=== PATIENT | female | born 1985 | race Two or more races ===

== ENCOUNTER → 2024-02-06 | Outpatient (CLI) | payer BC, OTHER, SELFPAY ==
[2024-02-06 10:43] LABS: Glucose Estimated Average 349 mg/dL (80-131); Hemoglobin A1C 13.8 % Hgb (4.8-6.0)
[2024-02-06 10:58] LABS: Albumin, Serum 4.6 gm/dL (3.5-5.0); Anion Gap 8 (7-16); BUN/Creatinine Ratio 29 Ratio (12-20); Blood Urea Nitrogen 26 mg/dL (9-23); Calcium 10.3 mg/dL (8.3-10.6); Calcium (Corrected) 10.3 mg/dL (8.5-10.1); Carbon Dioxide 27.2 mMol/L (20.0-31.0); Chloride 100 mMol/L (98-107); Creatinine (Component) 0.9 mg/dL (0.6-1.3); Glucose 372 mg/dL (74-106); Osmolality,Calculated 289 (275-295); Phosphorous 3.2 mg/dL (2.4-5.1); Potassium 4.2 mMol/L (3.4-5.1); Sodium 135 mMol/L (136-145); eGFR > 60 See Note
== END | disposition home or self-care (01) ==
LOC: COPL 09:14
PROVIDERS: PCP Internal Medicine; Referring Provider Internal Medicine; Visit Provider Internal Medicine
DX: E11.65 Type 2 diabetes mellitus with hyperglycemia (principal)
CPT/HCPCS: 36415; 80069; 83036; 84681

== ENCOUNTER → 2024-04-15 | Outpatient (CLI) | payer BC, OTHER, SELFPAY ==
[2024-04-15 10:15] LABS: Collection Type, Urine Clean Catch
[2024-04-15 10:46] LABS: Glucose Estimated Average 189 mg/dL (80-131); Hemoglobin A1C 8.2 % Hgb (4.8-6.0)
[2024-04-15 10:51] LABS: Creatinine MALB Rnd Ur 105 mg/dL (30-125); Microalbumin, Random Urine < 3 mg/L (0-300)
[2024-04-15 10:52] LABS: Alanine Aminotransferase 24 U/L (10-49); Albumin, Serum 3.8 gm/dL (3.5-5.0); Albumin/Globulin Ratio 1.7 (1.2-2.2); Alkaline Phosphatase 52 U/L (46-116); Anion Gap 6 (7-16); Aspartate Amino Transferase 16 U/L (0-34); BUN/Creatinine Ratio 27 Ratio (12-20); Bilirubin,Total 0.6 mg/dL (0.3-1.2); Blood Urea Nitrogen 19 mg/dL (9-23); Calcium 9.1 mg/dL (8.3-10.6); Calcium (Corrected) 9.3 mg/dL (8.5-10.1); Carbon Dioxide 28.9 mMol/L (20.0-31.0); Cardiac Risk Estimate 2.1 RATIO (3.7-5.6); Chloride 106 mMol/L (98-107); Cholesterol 159 mg/dL (132-200); Creatinine (Component) 0.7 mg/dL (0.6-1.3); Free T4 (Free Thyroxine) 1.77 ng/dL (0.89-1.76); Globulin 2.2 gm/dL (2.3-3.5); Glucose 142 mg/dL (74-106); HDL Cholesterol 75 mg/dL (40-60); LDL Cholesterol,Calculated 73 mg/dL (0-130); Osmolality,Calculated 285 (275-295); Potassium 3.5 mMol/L (3.4-5.1); Sodium 141 mMol/L (136-145); Triglycerides 56 mg/dL (30-150); eGFR > 60 See Note
[2024-04-15 10:55] LABS: Bacteria,Urine 3+; Bilirubin,Urine Negative (Negative); Blood,Urine Trace (Negative); Clarity,Urine Turbid (Clear/Hazy); Color,Urine Yellow (Lt Yel-Yel); Culture Indicated,Urine Contaminated; Glucose, Urine Negative (Negative); Ketones,Urine Negative (Negative); Leukocyte Esterase,Urine Positive (Negative); Nitrite,Urine Positive (Negative); PH,Urine 6.5 (5.0-7.0); Protein,Urine Trace (Neg - Trace); RBC,Urine 8 /hpf (0-3); Specific Gravity,Urine 1.025 (1.001-1.035); Squamous Epithelial Cell,Urine 29 /hpf (0-5); Urobilinogen,Urine Negative mg/dL (0.0-1.0); WBC,Urine 21 /hpf (0-5)
[2024-04-22 07:01] LABS: T3,Total* 73 ng/dL (76-181); Thyroid Peroxidase Antibodies* 12 IU/mL (<9)
== END | disposition home or self-care (01) ==
PROVIDERS: PCP Family Medicine; Referring Provider Nurse Practitioner Family; Visit Provider Nurse Practitioner Family
DX: E11.65 Type 2 diabetes mellitus with hyperglycemia (principal); E03.9 Hypothyroidism, unspecified
CPT/HCPCS: 36415; 80053; 80061; 81001; 82043; 82570; 83036; 84439; 84443; 84480; 86376

== ENCOUNTER → 2024-05-22 | Outpatient (CLI) | payer BC, OTHER, SELFPAY ==
[2024-05-22 09:08] LABS: Collection Type, Urine Clean Catch
[2024-05-22 10:28] LABS: Bacteria,Urine Rare; Bilirubin,Urine Negative (Negative); Blood,Urine Negative (Negative); Clarity,Urine Clear (Clear/Hazy); Color,Urine Lt-Yellow (Lt Yel-Yel); Glucose, Urine 4+ (Negative); Ketones,Urine Negative (Negative); Leukocyte Esterase,Urine Negative (Negative); Nitrite,Urine Positive (Negative); Protein,Urine Negative (Neg - Trace); RBC,Urine 1 /hpf (0-3); Specific Gravity,Urine 1.026 (1.001-1.035); Squamous Epithelial Cell,Urine 1 /hpf (0-5); Urobilinogen,Urine Negative mg/dL (0.0-1.0); WBC,Urine 10 /hpf (0-5)
[2024-05-22 10:35] LABS: Free T4 (Free Thyroxine) 1.38 ng/dL (0.89-1.76); Thyroid Stimulating Hormone 1.09 uIU/mL (0.55-4.78)
[2024-05-22 10:56] LABS: Culture Indicated,Urine Yes
== END | disposition home or self-care (01) ==
LOC: COPL 08:11
PROVIDERS: PCP Family Medicine; Referring Provider Nurse Practitioner Family; Visit Provider Nurse Practitioner Family
DX: E03.9 Hypothyroidism, unspecified (principal); N30.01 Acute cystitis with hematuria
CPT/HCPCS: 36415; 81001; 84439; 84443; 87077; 87086; 87186

== ENCOUNTER 2024-07-27 11:56 | Inpatient (IN) | payer BC, OTHER, SELFPAY ==
[2024-07-27] VITALS (11 sets, daily range): BP systolic 93–101; BP diastolic 51–71; PULSE 86–128; RESP 16–98; TEMP 36.8–39; O2SAT 98–99; BMI 22.6; BMI 21.9
--- NOTE | 2024-07-27 12:20 | XR_ITS ---
Examination: PA lateral chest 2 views Technique: Upright PA lateral chest 2 views Date and time: July 27, 2024 at 1228 hrs. Indications: Coughing beginning 3 days ago. Findings: Normal heart size. Lungs are clear. The osseous structures are intact Impression: No active disease
--- NOTE | 2024-07-27 12:21 | PD.EDRME ---
Rapid Medical Screening Exam RME Arrival date/time: 07/27/24 11:56 39-year-old female insulin-dependent diabetic presents Emergency Department today for complaints of feeling like she has had flulike symptoms generalized bodyaches ongoing for the last week patient was seen by PCP and referred to the ER for further evaluation Chief Complaint: Flu Like Symptoms Time Seen by Provider: 07/27/24 11:57 Vital signs: Vital Signs Temperature 100.5 F H 07/27/24 12:16 Pulse Rate 86 07/27/24 12:16 Respiratory Rate 16 07/27/24 12:16 Blood Pressure 93/56 L 07/27/24 12:16 Pulse Oximetry (%) 98 07/27/24 12:16 Oxygen Delivery Method Room Air 07/27/24 12:16
[2024-07-27] MEDS: ACETAMINOPHEN 325 MG TABLET 650 MG PO ×2 (12:27→19:16)
[2024-07-27 12:53] LABS: Lactate (Lactic Acid) 1.8 mMol/L (0.4-2.0)
[2024-07-27 12:54] LABS: Base Excess, Venous 2 (-3-3); O2 Saturation, Venous 42 % (96-97); PCO2, Venous 38 mmHg (36-56); PO2, Venous 22 mmHg (15-58); pH, Venous 7.44 (7.33-7.66)
[2024-07-27 12:56] LABS: Basophils # (Auto) 0.1 Thou/mm3 (0.0-0.2); Basophils % (Auto) 1 % (0-2.5); Eosinophils # (Auto) 0.1 Thou/mm3 (0.0-0.5); Eosinophils % (Auto) 1 % (0-10); Immature Granulocytes % (Auto) 1 % (0-0); Immature Granulocytes Auto 0.08 Thou/mm3 (0.00-0.00); Lymphocytes # (Auto) 0.4 Thou/mm3 (1.0-4.8); Lymphocytes % (Auto) 5 % (10-50); Mean Corpuscular HGB Conc 36.1 g/dl (31.0-37.0); Mean Corpuscular Volume 89 fL (80-100); Monocytes # (Auto) 0.3 Thou/mm3 (0.0-0.8); Monocytes % (Auto) 4 % (0-12); Neutrophils # (Auto) 7.4 Thou/mm3 (1.8-7.7); Neutrophils % (Auto) 88 % (37-80); Nucleated Red Blood Cell % 0 /100 WBC (0); Platelet Count 172 Thou/mm3 (140-440); RDW Standard Deviation 41.1 fL (36.4-46.3); Red Blood Count 4.06 Miln/mm3 (4.00-5.20); White Blood Count 8.4 Thou/mm3 (3.6-11.0)
[2024-07-27 13:22] LABS: Alanine Aminotransferase 14 U/L (10-49); Albumin, Serum 4.1 gm/dL (3.5-5.0); Albumin/Globulin Ratio 1.5 (1.2-2.2); Alkaline Phosphatase 112 U/L (46-116); Anion Gap 11 (7-16); Aspartate Amino Transferase 15 U/L (0-34); BUN/Creatinine Ratio 22 Ratio (12-20); Bilirubin,Total 0.6 mg/dL (0.3-1.2); Blood Urea Nitrogen 31 mg/dL (9-23); Calcium 9.3 mg/dL (8.3-10.6); Calcium (Corrected) 9.3 mg/dL (8.5-10.1); Carbon Dioxide 26.7 mMol/L (20.0-31.0); Chloride 95 mMol/L (98-107); Creatinine (Component) 1.4 mg/dL (0.6-1.3); Estimated Creatinine Clearance 39.9 mL/min (>60); Globulin 2.8 gm/dL (2.3-3.5); Glucose 256 mg/dL (74-106); Lipase 24 U/L (12-53); Osmolality,Calculated 281 (275-295); Potassium 4.1 mMol/L (3.4-5.1); Sodium 133 mMol/L (136-145); Total Protein 6.9 gm/dL (5.7-8.2); eGFR 48 See Note
[2024-07-27 13:24] LABS: Glucose Estimated Average 186 mg/dL (80-131); Hemoglobin A1C 8.1 % Hgb (4.8-6.0)
[2024-07-27 13:32] LABS: Collection Type, Urine Clean Catch
[2024-07-27 13:42] LABS: HCG Qualitative,Urine Negative
[2024-07-27 13:43] LABS: Procalcitonin 27.27 ng/ml (0.0-0.49)
[2024-07-27 13:52] LABS: Bacteria,Urine 4+; Bilirubin,Urine Negative (Negative); Blood,Urine 2+ (Negative); Budding Yeast,Urine Present; Clarity,Urine Turbid (Clear/Hazy); Color,Urine Yellow (Lt Yel-Yel); Glucose, Urine 2+ (Negative); Ketones,Urine 1+ (Negative); Leukocyte Esterase,Urine Positive (Negative); Nitrite,Urine Positive (Negative); Protein,Urine 3+ (Neg - Trace); RBC,Urine 14 /hpf (0-3); Specific Gravity,Urine 1.026 (1.001-1.035); Squamous Epithelial Cell,Urine 4 /hpf (0-5); Transitional Epi Cells,Urine 2 /hpf (0-5); Urobilinogen,Urine Negative mg/dL (0.0-1.0); WBC,Urine 429 /hpf (0-5)
[2024-07-27 13:54] LABS: Culture Indicated,Urine Yes
--- NOTE | 2024-07-27 16:50 | EDNOTE_ITS ---
ED General RME/HPI General Chief complaint: Flu Like Symptoms Stated complaint: SENT BY PCP FLU SYMPTOMS Time Seen by Provider: 07/27/24 11:57 Arrival date/time: 07/27/24 11:56 CC: Body aches flulike symptoms HPI ongoing for the past 4 days. Patient was recently diagnosed with diabetes now started on metformin pioglitazone as well as insulin. 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 Patient denies any nausea vomiting does complain of intermittent headache which is currently absent,, mild fever, patient denies chest pain painful urination bloody urination diarrhea or constipation. at bedside said the patient has lost considerable weight since the diabetes diagnosis. RME / HPI RME / HPI narrative: 07/27/24 11:56 39-year-old female insulin-dependent diabetic presents Emergency Department tod ay for complaints of feeling like she has had flulike symptoms generalized bodyaches ongoing for the last week patient was seen by PCP and referred to the ER for further evaluation Related Data Home Medications ?Medication ?Instructions ?Recorded ?Confirmed Vitamin * 1 tab PO QDAY SUPPLEMENT #0 tabs 01/12/14 Previous Rx's ?Medication ?Instructions ?Recorded ibuprofen 600 mg tablet 600 mg PO Q6HR PRN PAIN 7 da ys #0 01/14/14 tabs Allergies Allergy/AdvReac Type Severity Reaction Status Date / Time Sulfa (Sulfonamide Allergy Mild RASH Verified 07/27/24 11:56 Antibiotics) Review of Systems Review of Systems Narrative Review of Systems: GEN: No fever, no chills, no weight loss EYES: No discharge, no visual changes, no pain HEENT: No ear pain, no congestion, no sore throat PULM: No shortness of breath, no cough, no congestion CV: No chest pain, no dyspnea on exertion, no palpitations GI: No nausea, no vomiting, no diarrhea, no pain, no constipation : No frequency, no urgency, no dysuria MUSC/SKEL: No joint pain, no back pain SKIN: No rash PSYCH: No hallucinations, no depression HEME/LYMPH: No easy bleeding or bruising tendencies NEURO: + weakness, no headache Past Medical History Social History SMOKING STATUS: Never smoker ED Exam Narrative Physical exam: [General: In mild discomfort but not in any acute distress Head normocephalic HEENT: Within acceptable limits Neck is supple nontender Chest equal chest rise nontender to palpation Respiratory: Clear to auscultation no wheezes crackles or rubs CV: Rate rhythm is regular no murmurs rubs or clicks Abdomen is soft nontender no masses positive bowel sounds all 4 quadrants Back: No CVA tenderness no spinous process tenderness from cervical spine thoracic and lumbar spine Skin: Intact no petechiae rash induration ulceration or crepitus Extremities: Moving all extremity against resistance cap refill less than 2 seconds neurosensory intact Neuro: Awake alert oriented x3 Glascow coma 15 no focal deficits] Course Quality Measures none Orders Category Date Time Status Bedside COVID-19 Antigen Test NOW Care 07/27/24 12:20 Active Bedside Influenza A&B Antigen Test NOW Care 07/27/24 12:20 Completed Saline [Insert IV] NOW Care 07/27/24 16:[address] abdomen pelvis wo con Stat Exams 07/27/24 20:27 Ordered XR chest 2V Stat Exams 07/27/24 12:20 Completed A1C [Glycohemoglobin w (eAG)] Stat Lab 07/27/24 12:43 Completed Blood Culture (Lab) Stat Lab 07/27/24 12:43 Received CBC Stat Lab 07/27/24 12:43 Completed CMP [Comprehensive Metabolic Panel] Stat Lab 07/27/24 19:03 Completed Comprehensive Metabolic Panel Stat Lab 07/27/24 12:43 Completed HCG Qualitative,Urine Stat Lab 07/27/24 13:07 Completed Lactic Acid [Lactate (Lactic Acid)] Stat Lab 07/27/24 12:43 Completed Lipase Stat Lab 07/27/24 12:43 Completed Procalcitonin Stat Lab 07/27/24 12:43 Completed UA, C/S IF [Urinalysis, C/S if Indicated] Stat Lab 07/27/24 13:07 Completed Urine Culture Stat Lab 07/27/24 13:07 Received VBG [Venous Blood Gas] Stat Lab 07/27/24 12:43 Completed Acetaminophen Tab [Tylenol Tab] Med 07/27/24 12:20 Discontinued 650 mg PO X1 ONE Acetaminophen Tab [Tylenol Tab] Med 07/27/24 18:52 Discontinued 650 mg PO X1 ONE Sodium Chloride 0.9% 1000 ml [Ns] 1,000 ml Med 07/27/24 16:40 Discontinued IV 999 mls/hr Sodium Chloride 0.9% 1000 ml [Ns] 1,000 ml Med 07/27/24 17:55 Discontinued IV 999 mls/hr Sodium Chloride 0.9% 1000 ml [Ns] 1,000 ml Med 07/27/24 20:28 Active IV 999 mls/hr Sodium Chloride 0.9% 1000 ml [Ns] 1,000 ml Med 07/27/24 20:37 Ordered IV 999 mls/hr cefTRIAXone/D5w 1gm IV premix [Rocephin/D5w 1gm IV Med 07/27/24 16:40 Discontinued premix] 1 gm in 50 ml IV X1 Vital Signs Vital signs: Vital Signs Temperature 100.5 F H 07/27/24 12:16 Pulse Rate 86 07/27/24 12:16 Respiratory Rate 16 07/27/24 12:16 Blood Pressure 93/56 L 07/27/24 12:16 Pulse Oximetry (%) 98 07/27/24 12:16 Oxygen Delivery Method Room Air 07/27/24 12:16 Discharge Plan Plan Patient Disposition: Other Care w/in Hosp (SDC/EDDI) Patient condition on transfer: Stable Prescriptions/Referrals Prescriptions/Med Rec: No Action Vitamin * 1 EACH tablet 1 tab PO QDAY Qty: 0 ibuprofen 600 MG tablet 600 mg PO Q6HR PRN (Reason: PAIN) 7 Days Qty: 0 0RF Referrals: Alina Harding MD [Primary Care Provider] - In 1 week Problem List Clinical Impression: CHASIDY (acute kidney injury), Dehydration, UTI (urinary tract infection), Hyperglycemia due to diabetes mellitus, Tachycardia Patient/Caregiver Discharge Instructions Print Language: Sinhala Stand Alone Forms: Ina Award Info., Patient Portal Info Letter PA/PARTS ADMINISTRATOR Supervising Physician PA/PARTS ADMINISTRATOR Supervising Physician: Joey Hudson ENP [facility] Clinical Information Provided by patient Medical Records Reviewed [facility] Meds/Rx Considered, not Ordered None Labs/Rad/Tests considered, not Ordered None Chronic Illness/Social Conditions Add or document further as needed: Diabetes new onset EKG EKG not done Lab Interpretation Labs: interpreted by al Lab(s) interpretation(s): CBC showed no acute leukocytosis anemia thrombocytopenia VBG shows a pH of 7.44 pCO2 of 38 PO2 of 22 Base excess of 2 CMP shows sodium 133 a potassium of 4.1 chloride of 95 CO2 of 26.7 gap of 11 BUN of 31 creatinine of 1.4 Glucose of 256 Hemoglobin A1c of 8.1 Lactic of 1.8 Procalcitonin of 27.27 Urine is turbid 3+ protein 2+ glucose 1+ ketones 2+ blood nitrite positive leukocyte Estrace positive WBCs of 420 94+ bacteria. hCG is negative. Imaging Imaging interpretation: interpreted by me Provider imaging interpretation(s): Chest x-ray as interpreted by me shows no acute finding requires emergent or immediate intervention. Radiology reports / interpretation(s): Patient has a UTI, patient also has not been drinking shown by the CKD, this time I am concerned about both UTI and CKD we will give the patient 2 L of fluid and antibiotics and recheck. Recheck of CMP shows been no significant proved in fact BUN has probably slightly worsening, patient's case discussed discussed with Dr. Jaquez resident as I feel this patient needs to have a more thorough workup. Will rule out pyelonephritis, and see if we can recover the kidneys. Medication Administration(s) Medication Administration History Sodium Chloride (Ns) 1,000 mls @ 999 mls/hr IV .Q1H1M ONE Stop: 07/27/24 21:28 Discontinued Medications Acetaminophen (Acetaminophen 325 Mg Tablet) 650 mg PO X1 ONE Stop: 07/27/24 12:21 Last Admin: 07/27/24 12:27 Dose: 650 mg Documented By: DO Acetaminophen (Acetaminophen 325 Mg Tablet) 650 mg PO X1 ONE Stop: 07/27/24 18:53 Last Admin: 07/27/24 19:16 Dose: 650 mg Documented By: CINDA Sodium Chloride (Ns) 1,000 mls @ 999 mls/hr IV .Q1H1M ONE Stop: 07/27/24 17:40 Last Infusion: 07/27/24 17:59 Dose: Infused Documented By: Admin: 07/27/24 16:57 Dose: 999 mls/hr Documented By: VERNON Ceftriaxone Sodium/Dextrose (Rocephin/D5w 1gm Iv Premix) 1 gm in 50 mls @ 100 mls/hr IV X1 ONE Stop: 07/27/24 17:09 Last Infusion: 07/27/24 17:59 Dose: Infused Documented By: Admin: 07/27/24 16:57 Dose: 100 mls/hr Documented By: VERNON Sodium Chloride (Ns) 1,000 mls @ 999 mls/hr IV .Q1H1M ONE Stop: 07/27/24 18:55 Last Infusion: 07/27/24 19:16 Dose: Infused Documented By: Admin: 07/27/24 18:00 Dose: 999 mls/hr Documented By: VERNON Diagnosis Differential diagnosis: UTI pyelonephritis dehydration electrolyte imbalance
[2024-07-27] MEDS: SODIUM CHLORIDE 0.9% 1000 ML 1,000 ML 999 ML IV ×4 (16:57→23:45)
[2024-07-27] MEDS: cefTRIAXone/D5w 1gm IV premix 1 GM/50 ML BAG IV ×2 (16:57→22:09)
--- NOTE | 2024-07-27 17:05 | PC.NURSE ---
PT IN TODAY FOR MUSCLE ACHING, WEAKNESS SINCE Sunday07/24/24. PT IS A/O X4, ANSWERING ALL QUESTIONS. PT IS A NEWLY DIAGNOSED DM WITH IN THE LAST YEAR. PT STATES THAT BLOOD SUGARS WERE IN THE 200'S AND NORMALLY THEY RUN IN THE 90'S. CALL LIGHT WITH IN REACH AND SIG OTHER AT BEDSIDE.
--- NOTE | 2024-07-27 19:35 | PC.NURSE ---
pt resting quietly. co a bad MEDEL and low back pain. tylenol given.recheck 45 min
[2024-07-27 19:47] LABS: Alanine Aminotransferase 15 U/L (10-49); Albumin, Serum 3.4 gm/dL (3.5-5.0); Albumin/Globulin Ratio 1.4 (1.2-2.2); Alkaline Phosphatase 99 U/L (46-116); Anion Gap 11 (7-16); Aspartate Amino Transferase 22 U/L (0-34); BUN/Creatinine Ratio 24 Ratio (12-20); Bilirubin,Total 0.4 mg/dL (0.3-1.2); Blood Urea Nitrogen 34 mg/dL (9-23); Calcium 8.4 mg/dL (8.3-10.6); Calcium (Corrected) 8.9 mg/dL (8.5-10.1); Chloride 99 mMol/L (98-107); Creatinine (Component) 1.4 mg/dL (0.6-1.3); Estimated Creatinine Clearance 39.9 mL/min (>60); Globulin 2.5 gm/dL (2.3-3.5); Glucose 284 mg/dL (74-106); Osmolality,Calculated 283 (275-295); Sodium 133 mMol/L (136-145); Total Protein 5.9 gm/dL (5.7-8.2); eGFR 48 See Note
--- NOTE | 2024-07-27 20:27 | XR_ITS ---
Examination: CT abdomen and pelvis without contrast. Coronal 3-D reconstructions. Sagittal 2-D reconstructions. Date and time of exam:July 27, 2024 1228 hours INDICATIONS: Flank and lower abdominal pain beginning 4 days ago CTDI: vol (mGy): 7.13 DLP: (mGycm): 370 Technique: Axial images of the abdomen have been obtained, 3 mm slice thickness Intravenous contrast material has not been administered. Low dose protocols were performed. One or more of the following dose reduction techniques were used; automated exposure control, adjustment of the mA and/or KV according to patient size, use of iterative reconstruction technique. Findings: Suspicious for subtle edema at the lung bases No liver or splenic lesion No pancreatic mass No gallstones 2 mm lower pole left renal calculus Moderate left hydronephrosis, 7 mm left ureteropelvic junction calculus 18 mm fat-containing umbilical hernia No bowel obstruction Normal appendix No diverticulitis No pelvic mass Contracted urinary bladder IMPRESSION: Suspicious for subtle edema at the lung bases Moderate left hydronephrosis, 7 mm left ureteropelvic junction calculus
--- NOTE | 2024-07-27 21:14 | ESHP_ITS ---
Documentation for date of: 07/27/24 HPI History of Present Illness History of present illness: The patient is a 39-year-old female with a past medical history of diabetes mellitus, dysfunctional uterine bleeding status post hysterectomy, who presents to the ER complaining of generalized bodyaches, cough and burning micturition that started since . Patient states she visited her primary care provider, rapid COVID and influenza was negative, and she was not given any antibiotics. Patient stated that she has been feeling nauseous, and has myalgias, more pronounced in her lower back, neck and thighs. Also complaining of epigastric abdominal discomfort. Denies shortness of breath but reported taking shallow breaths as coughing and deep breathing causes her pain to aggravate. Patient denied productive cough, shortness of breath, chest pain, dizziness. Of note, patient was recently diagnosed with diabetes mellitus last month and started on metformin, pioglitazone and insulin 10 units daily, per patient she started having visual disturbances, where she was unable to read small text even at arms length, was found to have blood glucose in the 600s. At the time of presentation to ER patient was found to be hypotensive, febrile, tachycardic, received IV fluid boluses, initial labs pertinent for CHASIDY, and hyperglycemia. Urinalysis positive for UTI. Pending CT abdomen pelvis. Past medical history: Diabetes mellitus, diagnosed last month, on metformin, prednisone and insulin glargine 10 units daily. Past surgical history: S/p hysterectomy for dysfunctional uterine bleeding. 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 Has 3 kids. Review of Systems Review of Systems Systems Reviewed: All systems reviewed, normal except as documented Past Medical History Past Medical History CARDIAC: Negative Congestive Heart Failure RESPIRATORY: Negative Chronic Obstructive Pulmonary Disease (COPD) GENITOURINARY: Negative Renal Disease ENDOCRINE: Positive Diabetes Mellitus Type 2; Negative Diabetes Mellitus Type 1 Surgical History SURGICAL: Positive Hysterectomy (2022) Social History SMOKING STATUS: Never smoker Exam Vital Signs Temp Pulse Resp BP Pulse Ox O2 Del Method 102.2 F H 128 H 18 101/71 99 Room Air 07/27/24 20:44 07/27/24 19:18 07/27/24 19:18 07/27/24 19:18 07/27/24 19:18 07/27/24 19:18 Narrative Exam General: In mild discomfort due to pain, but not in any acute distress Head normocephalic HEENT: Within acceptable limits Neck is supple nontender Chest equal chest rise nontender to palpation Respiratory: Clear to auscultation no wheezes crackles or rubs CV: Rate rhythm is regular, tachycardic, no murmurs rubs or clicks Abdomen is mildly tender in right and left upper quadrants, negative rebound, negative Arauz sign. Back: No CVA tenderness no spinous process tenderness from cervical spine thoracic and lumbar spine Skin: Intact no petechiae rash induration ulceration or crepitus tattoos left upper arm. Extremities: Moving all extremity against resistance cap refill less than 2 seconds neurosensory intact Neuro: Awake alert oriented x3 Glascow coma 15 no focal deficits Results: Labs 07/27/24 12:43 07/27/24 19:03 Labs: Short CBC 07/27/24 Range/Units 12:43 WBC 8.4 (3.6-11.0) Thou/mm3 Hgb 13.0 (12.0-16.0) g/dL Hct 36.0 (36.0-46.0) % Plt Count 172 (140-440) Thou/mm3 BMP 07/27/24 07/27/24 12:43 19:03 Sodium 133 L 133 L Potassium 4.1 4.0 Chloride 95 L 99 Carbon Dioxide 26.7 23.0 BUN 31 H 34 H Creatinine 1.4 H 1.4 H Glucose 256 H 284 H Calcium 9.3 8.4 Liver Function 07/27/24 07/27/24 Range/Units 12:43 19:03 Total Bilirubin 0.6 0.4 (0.3-1.2) mg/dL AST 15 22 (0-34) U/L ALT 14 15 (10-49) U/L Alkaline Phosphatase 112 99 (46-116) U/L Albumin 4.1 3.4 L D (3.5-5.0) gm/dL Urine 07/27/24 Range/Units 13:07 Urine Color Yellow (Lt Yel-Yel) Urine Clarity Turbid A (Clear/Hazy) Urine pH 6.0 (5.0-7.0) Ur Specific [place] 1.026 (1.001-1.035) Urine Protein 3+ A (Neg - Trace) Urine Glucose (UA) 2+ A (Negative) ABG Interpretation ABG results: 07/27/24 12:43 VBG pH 7.44 VBG pCO2 38 VBG pO2 22 VBG Base Excess 2 Quality Measures Quality Measures none Medications Home Medications and Allergies Home Medications ?Medication ?Instructions ?Recorded ?Confirmed ?Type Vitamin * 1 tab PO QDAY SUPPLEMENT #0 tabs 01/12/14 History Allergies Allergy/AdvReac Type Severity Reaction Status Date / Time Sulfa (Sulfonamide Allergy Mild RASH Verified 07/27/24 11:56 Antibiotics) Visit Medications Acetaminophen (Acetaminophen 325 Mg Tablet) 650 mg PO Q6H PRN PRN Reason: PAIN OR FEVER > 101 Stop: 08/26/24 21:07 Dextrose (Dextrose 50%-Water Inj 50 Ml Syringe) 25 ml IV Q15MIN PRN PRN Reason: BG 50-70 responsive npo pt Stop: 08/26/24 21:07 Dextrose (Dextrose 50%-Water Inj 50 Ml Syringe) 50 ml IV Q15MIN PRN PRN Reason: BG <50 OR BG <70 & pt unresponsive Stop: 08/26/24 21:07 Glucagon (Glucagon Inj 1 Mg Vial) 1 mg IM Q15MIN PRN PRN Reason: BG <70, and no IV access Sodium Chloride (Ns) 1,000 mls @ 999 mls/hr IV .Q1H1M ONE Stop: 07/27/24 21:28 Sodium Chloride (Ns) 1,000 mls @ 999 mls/hr IV .Q1H1M ONE Stop: 07/27/24 21:37 Ceftriaxone Sodium/Dextrose (Rocephin/D5w 1gm Iv Premix) 1 gm in 50 mls @ 100 mls/hr IV X1 ONE Stop: 07/27/24 21:42 Ceftriaxone Sodium 2 gm/ (Sodium Chloride) 50 mls @ 100 mls/hr IV QDAY [place] Stop: 08/04/24 08:59 Insulin Glargine (Insulin Glargine (Lantus) 5 Unit/0.05 Ml (Per 5 Units)) 10 unit SC HS [place] Stop: 08/27/24 20:59 Insulin Human Lispro (Insulin Lispro (Admelog) 1 Unit/0.01 Ml Unit) 0 unit SC AC [place]; Protocol Stop: 08/27/24 07:29 Ondansetron HCl (Ondansetron Inj 2 Mg/Ml Inj 2 Ml) 4 mg IV Q6H PRN; Protocol PRN Reason: NAUSEA OR VOMITING Stop: 08/26/24 21:07 Sennosides (Senna Tablet) 2 tab PO BID PRN; Protocol PRN Reason: CONSTIPATION Stop: 08/26/24 21:07 Discontinued Medications Acetaminophen (Acetaminophen 325 Mg Tablet) 650 mg PO X1 ONE Stop: 07/27/24 12:21 Last Admin: 07/27/24 12:27 Dose: 650 mg Acetaminophen (Acetaminophen 325 Mg Tablet) 650 mg PO X1 ONE Stop: 07/27/24 18:53 Last Admin: 07/27/24 19:16 Dose: 650 mg Sodium Chloride (Ns) 1,000 mls @ 999 mls/hr IV .Q1H1M ONE Stop: 07/27/24 17:40 Last Infusion: 07/27/24 17:59 Dose: Infused Ceftriaxone Sodium/Dextrose (Rocephin/D5w 1gm Iv Premix) 1 gm in 50 mls @ 100 mls/hr IV X1 ONE Stop: 07/27/24 17:09 Last Infusion: 07/27/24 17:59 Dose: Infused Sodium Chloride (Ns) 1,000 mls @ 999 mls/hr IV .Q1H1M ONE Stop: 07/27/24 18:55 Last Infusion: 07/27/24 19:16 Dose: Infused Ibuprofen (Ibuprofen Tab 600 Mg Tablet) 600 mg PO X1 ONE Stop: 07/27/24 21:08 Assessment & Plan Plan The patient is a 39-year-old female with a past medical history of diabetes mellitus, dysfunctional uterine bleeding status post hysterectomy, who presents to the ER complaining of generalized bodyaches, cough and burning micturition that started since . #Sepsis #Concern for pyelonephritis Met sepsis criteria, Tmax 102, heart rate 130s, blood pressure 93/56 on arrival, possible source UTI, rule out complicated urine tract infection. Reported symptoms of fever and bodyaches since , has been complaining of backache and abdominal discomfort. Abdomen is tender in both right and left upper quadrants but, Arauz sign negative. Negative rebound tenderness. Lactic acid 1.8, pending repeat. ? IV ceftriaxone 2 g daily ? Follow-up blood cultures and urine cultures ? IV fluid boluses ? Follow CT abdomen pelvis without contrast due to chasidy to rule out pyonephritis will consider further imaging with contrast if indicated. ? Consider nephrostomy tube if worsening renal function to resolve hydronephrosis. #CHASIDY Prerenal versus renal etiology/diabetic nephropathy/versus postrenal Patient has normal baseline renal function, now presented with CHASIDY, in the setting of sepsis, will continue with IV antibiotics and IV fluids. ? Follow CT abdomen pelvis to rule out pyelonephritis or obstructive nephropathy. ? Consider nephrostomy tube if worsening renal function to resolve hydronephrosis. #History of diabetes mellitus A1c 8%, recently diagnosed diabetes mellitus, on metformin and pioglitazone, in addition to insulin 10 insulin. ? Holding metformin pioglitazone ? Continue insulin glargine 10 units daily in addition to sliding scale ? Monitor for hypoglycemia Plan of care discussed with attending physician Alli pgy 2 Attending Provider Attestation/Addendum Patient admitted for seizures, UTI. CT scan showed 7 mm left UPJ calculus with hydronephrosis. I discussed with and supervised the resident physician who took care of this patient. I agree with the assessment and plan as above.
[2024-07-27 21:20] LABS: Lactate (Lactic Acid) 1.7 mMol/L (0.4-2.0)
[2024-07-27] MEDS: IBUPROFEN TAB 600 MG TABLET PO (21:48)
--- NOTE | 2024-07-27 22:32 | PC.NURSE ---
sepsis alert called at [id number]
--- NOTE | 2024-07-27 22:40 | PC.NURSE ---
report called to Cheryl. pt taken up by RN on clinical research monitor.
[2024-07-28] VITALS: BP 92/57; PULSE 104; RESP 18; TEMP 36.3; O2SAT 94
[2024-07-28 00:48] LABS: Collection Type, Urine Clean Catch
[2024-07-28 01:17] LABS: Chloride,Urine Random 46.6 mMol/L (55.0-125.0); Creatinine,Random Urine 96 mg/dL (30-125); Potassium,Urine Random 37 mMol/L (12-62); Protein Total, Random Urine 151 mg/dL (1-14); Sodium,Urine Random 28.1 mMol/L (20.0-110.0)
[2024-07-28 01:21] LABS: Bacteria,Urine 1+; Bilirubin,Urine Negative (Negative); Blood,Urine 2+ (Negative); Clarity,Urine Turbid (Clear/Hazy); Color,Urine Yellow (Lt Yel-Yel); Glucose, Urine 2+ (Negative); Hyaline Casts,Urine < 1 /hpf (0-1); Ketones,Urine 1+ (Negative); Leukocyte Esterase,Urine Positive (Negative); Nitrite,Urine Negative (Negative); Protein,Urine 1+ (Neg - Trace); RBC,Urine 7 /hpf (0-3); Specific Gravity,Urine 1.019 (1.001-1.035); Squamous Epithelial Cell,Urine 3 /hpf (0-5); WBC,Urine 489 /hpf (0-5)
[2024-07-28 04:00] VITALS: BP 90/56; PULSE 85; RESP 16; TEMP 36.1; O2SAT 94
[2024-07-28] MEDS: RINGERS LACTATED 1000 ML 1,000 ML 70 ML IV (05:37)
[2024-07-28] MEDS: ACETAMINOPHEN 325 MG TABLET 650 MG PO ×2 (05:37→13:22)
[2024-07-28] MEDS: LEVOTHYROXINE SODIUM 112 MCG TABLET PO (06:22)
[2024-07-28 06:25] LABS: Basophils % (Auto) 1 % (0-2.5); Eosinophils # (Auto) 0.1 Thou/mm3 (0.0-0.5); Eosinophils % (Auto) 1 % (0-10); Hematocrit 27.6 % (36.0-46.0); Hemoglobin 9.7 g/dL (12.0-16.0); Immature Granulocytes % (Auto) 5 % (0-0); Immature Granulocytes Auto 0.23 Thou/mm3 (0.00-0.00); Lymphocytes # (Auto) 0.5 Thou/mm3 (1.0-4.8); Lymphocytes % (Auto) 10 % (10-50); Mean Corpuscular HGB Conc 35.1 g/dl (31.0-37.0); Mean Corpuscular Hemoglobin 31.5 pg (25.0-35.0); Mean Corpuscular Volume 90 fL (80-100); Monocytes # (Auto) 0.3 Thou/mm3 (0.0-0.8); Monocytes % (Auto) 7 % (0-12); Neutrophils % (Auto) 77 % (37-80); Nucleated Red Blood Cell % 0 /100 WBC (0); Platelet Count 118 Thou/mm3 (140-440); RDW Standard Deviation 42.2 fL (36.4-46.3); Red Blood Count 3.08 Miln/mm3 (4.00-5.20); White Blood Count 5.2 Thou/mm3 (3.6-11.0)
[2024-07-28 06:29] LABS: INR 1.2 (0.9-1.3); Prothrombin Time 13.4 Seconds (9.0-12.2)
[2024-07-28 07:55] LABS: Alanine Aminotransferase 40 U/L (10-49); Alkaline Phosphatase 167 U/L (46-116); Anion Gap 11 (7-16); Aspartate Amino Transferase 59 U/L (0-34); BUN/Creatinine Ratio 27 Ratio (12-20); Bilirubin,Direct 0.2 mg/dL (0.0-0.3); Bilirubin,Total 0.4 mg/dL (0.3-1.2); Blood Urea Nitrogen 32 mg/dL (9-23); Calcium 7.1 mg/dL (8.3-10.6); Carbon Dioxide 21.9 mMol/L (20.0-31.0); Chloride 106 mMol/L (98-107); Cholesterol 110 mg/dL (132-200); Creatinine (Component) 1.2 mg/dL (0.6-1.3); Estimated Creatinine Clearance 48.8 mL/min (>60); Glucose 252 mg/dL (74-106); HDL Cholesterol < 5 mg/dL (40-60); LDL Cholesterol,Calculated 65 mg/dL (0-130); Magnesium 1.2 mg/dL (1.6-2.6); Osmolality,Calculated 293 (275-295); Phosphorous 1.5 mg/dL (2.4-5.1); Potassium 3.5 mMol/L (3.4-5.1); Sodium 139 mMol/L (136-145); Total Protein 5.2 gm/dL (5.7-8.2); Triglycerides 199 mg/dL (30-150); eGFR 58 See Note
[2024-07-28 08:00] VITALS: BP 97/68; PULSE 85; PULSE 86; RESP 16; TEMP 36.3; O2SAT 91
[2024-07-28 08:35] VITALS: PULSE 87; RESP 18; RESP 98
[2024-07-28 08:54] VITALS: BP 106/69
[2024-07-28 09:08] LABS: Free T4 (Free Thyroxine) 0.86 ng/dL (0.89-1.76)
[2024-07-28 09:20] VITALS: BMI 24.1
[2024-07-28] MEDS: Magnesium Sulfate 4 GM Ivpb 4 GM/50 ML BAG IV ×2 (09:21→12:08)
[2024-07-28] MEDS: POT PHOS 15 mMol in NS 250 ML 15 MMOL/250 ML BAG 62.5 MMOL IV ×2 (09:22→13:45)
--- NOTE | 2024-07-28 09:51 | PC.CC ---
Addendum entered by Nam Seymour RN 07/28/24 13:26: 1320- Received call from Nu at [facility], patient has been accepted by Dr. Levi, patient will go to room 341. Phone number for report [phone]. LENORA Joanie updated with this information and phone number for report. Addendum entered by Nam Seymour RN 07/28/24 10:06: 1000- Spoke with CORNELIUS Tena at [facility] to request inpatient transfer. Provided clinical updates and contact information for referring MD. Insurance Authorization requested prior to presenting case, they will keep case open until tomorrow so we can obtain authorization prior to presenting case. We will need to follow up tomorrow with Auth if available. Addendum entered by Nam Seymour RN 07/28/24 10:01: 0955- Spoke with CORNELIUS Judge at [facility], provided clinical informaition and MD contact information for peep to peer, she will review clinical records provided and present case to her urology department, she will call back with an update. Original Note: 0900- Spoke with Dr. Carney who informed of need for transfer for urology services. Packet created and imaging disc created. Transfer packet sent to , [facility], [facility], and [facility]. Spoke with Brenda at [facility] who declined patient as they do not have urology services available. [place] at [facility] requested prior authorization by insurance, call to [facility] for prior auth, offices closed for the holiday.
[2024-07-28] MEDS: MORPHINE SULF INJ 10 MG/ML VIAL 2 MG IVP (10:23)
--- NOTE | 2024-07-28 11:31 | PC.NURSE ---
Report given to CORNELIUS Huber. Patient transferred to TELE [id number].
--- NOTE | 2024-07-28 11:33 | PD.RESPRO ---
Documentation for date of: 07/28/24 Exam Vital Signs Temp Pulse Resp BP Pulse Ox O2 Del Method 97.3 F 87 18 106/69 91 L Room Air 07/28/24 08:00 07/28/24 08:35 07/28/24 08:35 07/28/24 08:54 07/28/24 08:00 07/28/24 08:00 Objective Labs 07/28/24 05:03 07/28/24 05:03 Labs: Laboratory Results - last 24 hr 07/27/24 07/27/24 07/27/24 12:43 13:07 19:03 WBC 8.4 RBC 4.06 Hgb 13.0 Hct 36.0 MCV 89 MCH 32.0 MCHC 36.1 RDW Std Deviation 41.1 Plt Count 172 Neut % (Auto) 88 H Lymph % (Auto) 5 L Sanders % (Auto) 4 Eos % (Auto) 1 Baso % (Auto) 1 Neut # (Auto) 7.4 Lymph # (Auto) 0.4 L Sanders # (Auto) 0.3 Eos # (Auto) 0.1 Baso # (Auto) 0.1 Immature Gran # (Auto) 0.08 H Absolute Nucleated RBC 0.00 Immature Gran % 1 H Nucleated RBC % 0 PT INR VBG pH 7.44 VBG pCO2 38 VBG pO2 22 VBG O2 Sat (Mar) 42 L VBG Base Excess 2 Sodium 133 L 133 L Potassium 4.1 4.0 Chloride 95 L 99 Carbon Dioxide 26.7 23.0 Anion Gap 11 11 BUN 31 H 34 H Creatinine 1.4 H 1.4 H Estim Creat Clear Calc 39.9 L 39.9 L eGFR 48 L 48 L BUN/Creatinine Ratio 22 H 24 H Glucose [address] Glu mg/dL 186 H Hemoglobin A1c 8.1 H Calculated Osmolality 281 283 Lactic Acid 1.8 Calcium 9.3 8.4 Corrected Calcium 9.3 8.9 Phosphorus Magnesium Total Bilirubin 0.6 0.4 Direct Bilirubin AST 15 22 ALT 14 15 Alkaline Phosphatase 112 99 Total Protein 6.9 5.9 Albumin 4.1 3.4 L D Globulin 2.8 2.5 Albumin/Globulin Ratio 1.5 1.4 Triglycerides Cholesterol LDL Cholesterol, Calc HDL Cholesterol Cholesterol/HDL Ratio Lipase 24 Procalcitonin 27.27 H TSH Free T4 Ur Collection Type Clean Catch Urine Color Yellow Urine Clarity Turbid A Urine pH 6.0 Ur Specific [place] 1.026 Urine Protein 3+ A Urine Glucose (UA) 2+ A Urine Ketones 1+ A Urine Blood 2+ A Urine Nitrite Positive Urine Bilirubin Negative Urine Urobilinogen (Auto) Negative Ur Leukocyte Esterase Positive Urine RBC 14 H Urine WBC 429 H Ur Squamous Epith Cells 4 Ur Transition Epith Cell 2 Urine Bacteria 4+ A Hyaline Casts Urine Yeast (Budding) Present A Ur Culture Indicated? Yes Ur Random Creatinine U Random Total Protein Ur Random Sodium Ur Random Potassium Ur Random Chloride Urine HCG, Qual Negative 07/27/24 07/28/24 07/28/24 20:53 00:38 00:40 WBC RBC Hgb Hct MCV MCH MCHC RDW Std Deviation Plt Count Neut % (Auto) Lymph % (Auto) Sanders % (Auto) Eos % (Auto) Baso % (Auto) Neut # (Auto) Lymph # (Auto) Sanders # (Auto) Eos # (Auto) Baso # (Auto) Immature Gran # (Auto) Absolute Nucleated RBC Immature Gran % Nucleated RBC % PT INR VBG pH VBG pCO2 VBG pO2 VBG O2 Sat (Mar) VBG Base Excess Sodium Potassium Chloride Carbon Dioxide Anion Gap BUN Creatinine Estim Creat Clear Calc eGFR BUN/Creatinine Ratio Glucose Estimated Ave Glu mg/dL Hemoglobin A1c Calculated Osmolality Lactic Acid 1.7 Calcium Corrected Calcium Phosphorus Magnesium Total Bilirubin Direct Bilirubin AST ALT Alkaline Phosphatase Total Protein Albumin Globulin Albumin/Globulin Ratio Triglycerides Cholesterol LDL Cholesterol, Calc HDL Cholesterol Cholesterol/HDL Ratio Lipase Procalcitonin TSH Free T4 Ur Collection Type Clean Catch Urine Color Yellow Urine Clarity Turbid A Urine pH 6.0 Ur Specific [place] 1.019 Urine Protein 1+ A Urine Glucose (UA) 2+ A Urine Ketones 1+ A Urine Blood 2+ A Urine Nitrite Negative Urine Bilirubin Negative Urine Urobilinogen (Auto) 2.0 Ur Leukocyte Esterase Positive Urine RBC 7 H Urine WBC 489 H Ur Squamous Epith Cells 3 Ur Transition Epith Cell Urine Bacteria 1+ A Hyaline Casts < 1 Urine Yeast (Budding) Ur Culture Indicated? Ur Random Creatinine 96 U Random Total Protein 151 H Ur Random Sodium 28.1 Ur Random Potassium 37 Ur Random Chloride 46.6 L Urine HCG, Qual 07/28/24 05:03 WBC 5.2 RBC 3.08 L Hgb 9.7 L D Hct 27.6 L MCV 90 MCH 31.5 MCHC 35.1 RDW Std Deviation 42.2 Plt Count 118 L D Neut % (Auto) 77 Lymph % (Auto) 10 Sanders % (Auto) 7 Eos % (Auto) 1 Baso % (Auto) 1 Neut # (Auto) 4.0 Lymph # (Auto) 0.5 L Sanders # (Auto) 0.3 Eos # (Auto) 0.1 Baso # (Auto) 0.0 Immature Gran # (Auto) 0.23 H Absolute Nucleated RBC 0.00 Immature Gran % 5 H Nucleated RBC % 0 PT 13.4 H INR 1.2 VBG pH VBG pCO2 VBG pO2 VBG O2 Sat (Mar) VBG Base Excess Sodium 139 Potassium 3.5 D Chloride 106 Carbon Dioxide 21.9 Anion Gap 11 BUN 32 H Creatinine 1.2 Estim Creat Clear Calc 48.8 L eGFR 58 L BUN/Creatinine Ratio 27 H Glucose [address] Glu mg/dL Hemoglobin A1c Calculated Osmolality 293 Lactic Acid Calcium 7.1 L Corrected Calcium Phosphorus 1.5 L Magnesium 1.2 L Total Bilirubin 0.4 Direct Bilirubin 0.2 AST 59 H ALT 40 Alkaline Phosphatase 167 H D Total Protein 5.2 L Albumin 3.0 L Globulin Albumin/Globulin Ratio Triglycerides 199 H Cholesterol 110 L LDL Cholesterol, Calc 65 HDL Cholesterol < 5 L Cholesterol/HDL Ratio 22.0 H Lipase Procalcitonin TSH 5.80 H Free T4 0.86 L Ur Collection Type Urine Color Urine Clarity Urine pH Ur Specific [place] Urine Protein Urine Glucose (UA) Urine Ketones Urine Blood Urine Nitrite Urine Bilirubin Urine Urobilinogen (Auto) Ur Leukocyte Esterase Urine RBC Urine WBC Ur Squamous Epith Cells Ur Transition Epith Cell Urine Bacteria Hyaline Casts Urine Yeast (Budding) Ur Culture Indicated? Ur Random Creatinine U Random Total Protein Ur Random Sodium Ur Random Potassium Ur Random Chloride Urine HCG, Qual ABG Interpretation ABG results: 07/27/24 12:43 VBG pH 7.44 VBG pCO2 38 VBG pO2 22 VBG Base Excess 2 Quality Measures Quality Measures none Assessment & Plan Assessment Current Active Medications: Generic Name Dose Route Start Last Admin Trade Name Freq PRN Reason Stop Dose Admin Acetaminophen 650 mg 07/28/24 00:49 07/28/24 05:37 Acetaminophen 325 Mg Tablet PO 08/26/24 21:07 650 mg Q6H PRN Administration PAIN 1-3 OR FEVER > 101 Dextrose 25 ml 07/27/24 21:08 Dextrose 50%-Water Inj 50 Ml Syringe IV 08/26/24 21:07 Q15MIN PRN BG 50-70 responsive npo pt Dextrose 50 ml 07/27/24 21:08 Dextrose 50%-Water Inj 50 Ml Syringe IV 08/26/24 21:07 Q15MIN PRN BG <50 OR BG <70 & pt unresponsive Glucagon 1 mg 07/27/24 21:08 Glucagon Inj 1 Mg Vial IM Q15MIN PRN BG <70, and no IV access Ceftriaxone Sodium 2 gm/ 50 mls @ 100 mls/hr 07/28/24 21:00 Sodium Chloride IV 08/04/24 20:59 DAILY@2100 [facility] Lactated Ringer's 1,000 mls @ 70 mls/hr 07/28/24 05:30 07/28/24 05:37 Lactated Ringers IV 08/27/24 05:29 70 mls/hr .[id number] [facility] Administration Magnesium Sulfate 4 gm in 50 mls @ 12.5 mls/hr 07/28/24 08:30 07/28/24 09:21 Magnesium Sulfate Ivpb IV 07/28/24 16:29 12.5 mls/hr Q4H [facility] Administration Potassium Phosphate 15 mmol in 250 mls @ 62.5 mls/hr 07/28/24 08:30 07/28/24 09:22 Pot Phos 15 Mmol In Ns 250 Ml IV 07/28/24 20:29 62.5 mls/hr Q4H [facility] Administration Insulin Glargine 10 unit 07/28/24 21:00 Insulin Glargine (Lantus) 5 Unit/0.05 Ml (Per 5 Units) SC 08/27/24 20:59 HS [facility] Insulin Human Lispro 0 unit 07/28/24 07:30 07/28/24 09:22 Insulin Lispro (Admelog) 1 Unit/0.01 Ml Unit SC 08/27/24 07:29 Not Given AC [facility] Protocol Levothyroxine Sodium 112 mcg 07/28/24 06:00 07/28/24 06:22 Levothyroxine Sodium 112 Mcg Tablet PO 08/27/24 05:59 112 mcg ACBR [facility] Administration Morphine Sulfate 2 mg 07/27/24 22:34 07/28/24 10:23 Morphine Sulf Inj 10 Mg/Ml Vial IVP 08/01/24 22:33 2 mg Q4HR PRN Administration PAIN SCALE 4-10(Mod-Sev Ondansetron HCl 4 mg 07/27/24 21:08 Ondansetron Inj 2 Mg/Ml Inj 2 Ml IV 08/26/24 21:07 Q6H PRN NAUSEA OR VOMITING Protocol Sennosides 2 tab 07/27/24 21:08 Senna Tablet PO 08/26/24 21:07 BID PRN CONSTIPATION Protocol
[2024-07-28 12:00] VITALS: BP 93/61; PULSE 100; PULSE 76; RESP 22; TEMP 36.2; O2SAT 94
[2024-07-28] MEDS: INSULIN LISPRO (AdmeLOG) 1 UNIT/0.01 ML UNIT SC (12:01)
--- NOTE | 2024-07-28 13:11 | ESDS_ITS ---
<Statement entered by Ursula Carney DO - 07/29/24 09:47> I, Ursula Carney DO, attest that I was physically present for the amezcua portions of the service and evaluated the patient with the resident and I reviewed and discussed the case with the resident and agree with the resident's findings and plans of care as documented above Planned Discharge Date 07/28/24 DS: Providers Provider Date of admission: 07/27/24 21:08 Primary care physician: Alina Harding MD Admitting Provider: Julio Cuevas MD Attending Provider on Admission: Julio Cuevas MD Consults: 07/27/24 21:08 Referral Registered Dietitian Routine Comment: Referral Registered Dietitian Urgent Comment: 07/27/24 22:35 Consult to Urology Routine Comment: 7mm left UPJ calculus, hydronephrosis Consulting Provider: Madelin Ngo 07/28/24 07:58 Referral - Department Helper Stat Service Needed for Transfer: Urology Addl Comments:: Sepsis 2/2 to 7mm partially obstructing nephrolithiasis, low urine output Attending Provider on DC: Tomas Cooney MD Discharging Provider: Tomas Cooney MD DS: Diagnosis Problem List Completed Was Problem List Reviewed/Reconciled?: Yes Hospital Course Hospital Course Hospital course: 39-year-old female with a past medical history of diabetes mellitus, dysfunctional uterine bleeding status post hysterectomy, who presented to the ER complaining of generalized bodyaches, cough and burning micturition that started since . Patient stated that she has been feeling nauseous and had myalgias, more pronounced in her lower back, neck and thighs. Also complaining of epigastric abdominal discomfort. Of note, patient was recently diagnosed with diabetes mellitus last month and started on metformin, pioglitazone and insulin 10 units daily. At the time of presentation to ER patient was found to be hypotensive, febrile, tachycardic, received IV fluid boluses, initial labs pertinent for CHASIDY, and hyperglycemia. Urinalysis positive for UTI. Chest x-ray showed no active disease and CT abdomen pelvis showed subtle edema at the lung bases along with moderate left hydronephrosis secondary to 7 mm left ureteropelvic junction calculus. Patient's blood cultures positive for gram- negative rods from anaerobic bottle and second set positive from both aerobic and anaerobic bottles. Patient continues to be on IV ceftriaxone 2 g. Due to the hospital not having IR or urology services available at this time order for transfer has been initiated. Hospitalist from [facility] consulted and they have agreed on excepting the patient for transfer for the 7 mm partially obstructing calculus causing sepsis and left-sided hydronephrosis. Hospital Diagnosis: #Sepsis secondary to UTI #GNR bacteremia #Obstructive Uropathy #Nephrolithiasis #Moderate hydronephrosis #CHASIDY #Cia-[id number] type 2 diabetes #Elevated liver enzymes #Electrolyte abnormalities #Normocytic anemia #Hypothyroidism Tomas Cooney, PGY-1 Status at Discharge Overall status at discharge: patient is progressing back to baseline Time Spent with Patient Time attestation: Total time spent providing and/or coordinating discharge services: 45 minutes Time spent: Greater than 30 minutes Exam Vital Signs Temp Pulse Resp BP Pulse Ox O2 Del Method 97.3 F 87 18 106/69 91 L Room Air 07/28/24 08:00 07/28/24 08:35 07/28/24 08:35 07/28/24 08:54 07/28/24 08:00 07/28/24 08:00 Narrative Exam General: In mild discomfort due to pain, but not in any acute distress Head normocephalic HEENT: Within acceptable limits Neck is supple nontender Chest equal chest rise nontender to palpation Respiratory: Clear to auscultation no wheezes crackles or rubs CV: Rate rhythm is regular, tachycardic, no murmurs rubs or clicks Abdomen is mildly tender in right and left upper quadrants, negative rebound, negative Arauz sign. Back: No CVA tenderness no spinous process tenderness from cervical spine thoracic and lumbar spine Skin: Intact no petechiae rash induration ulceration or crepitus tattoos left upper arm. Extremities: Moving all extremity against resistance cap refill less than 2 seconds neurosensory intact Neuro: Awake alert oriented x3 Glascow coma 15 no focal deficits Discharge Plan Plan Patient Disposition: Xfer Other Facility Pt Being Transferred to: [facility] Service Needed for Transfer: Urology Patient condition on transfer: Stable Prescriptions/Referrals Prescriptions/Med Rec: No Action metformin 500 mg tablet 1,000 mg PO BIDAC Patient Comments: TAKE 2 TABLETS BY MOUTH TWICE A DAY pioglitazone 30 mg tablet 30 mg PO .day Patient Comments: TAKE 1 TABLET BY MOUTH ONCE DAILY IN THE MORNING glimepiride 1 mg tablet 1 mg PO BID Patient Comments: TAKE 1 TABLET BY MOUTH TWICE A DAY WITH MEALS levothyroxine 112 mcg tablet 112 mcg PO ACBR Patient Comments: TAKE 1 TABLET BY MOUTH EVERY DAY IN THE MORNING ON EMPTY STOMACH FOR 90 DAYS insulin degludec [Tresiba FlexTouch U-100] 100 unit/mL (3 mL) insulin pen 10 unit SUBCUT DAILY Patient Comments: INJECT 10 UNITS SUBCUTANEOUSLY DAILY Referrals: Alina Harding MD [Primary Care Provider] - Patient/Caregiver Discharge Instructions Print Language: Nepali Stand Alone Forms: Ina Award Info., Patient Portal Info Letter Discharge Order Discharge Orders: Discharge (Routine); Ordered 07/28/24 Ordered By: Tomas Cooney Quality Discharge Quality Measures VTE prophylaxis
[2024-07-28 14:14] LABS: Magnesium 2.7 mg/dL (1.6-2.6)
--- NOTE | 2024-07-28 15:51 | PC.NURSE ---
CALLED REPORT TO [facility] IN [place]. ALL QUESTIONS ANSWERED.
== END 2024-07-28 16:43 | disposition other institution (70) | DRG 872 ==
LOC: SERX 20:39 → SERHOLD 21:29 → S3SX 23:14 → S2NX 07-28 11:30
PROVIDERS: Nurse Practitioner Primary Care; Registered Nurse General Practice; Student in an Organized Health Care Education/Training Program; Admitting Provider Internal Medicine; Emergency Provider Family Medicine; PCP Family Medicine; Visit Provider Internal Medicine
DX: A41.9 Sepsis, unspecified organism (principal); N13.6 Pyonephrosis; N17.9 Acute kidney failure, unspecified; N20.2 Calculus of kidney with calculus of ureter; E11.65 Type 2 diabetes mellitus with hyperglycemia; D64.9 Anemia, unspecified; R74.8 Abnormal levels of other serum enzymes; E03.9 Hypothyroidism, unspecified; E86.0 Dehydration; R56.9 Unspecified convulsions; Z79.4 Long term (current) use of insulin; Z90.710 Acquired absence of both cervix and uterus; Z79.84 Long term (current) use of oral hypoglycemic drugs; Z88.2 Allergy status to sulfonamides
CPT/HCPCS: 36415; 71046; 74176; 80048; 80053; 80061; 80076; 81001; 81025; 82436; 82570; 82803; 83036; 83605; 83690; 83735; 84100; 84133; 84145; 84156; 84300; 84439; 84443; 85025; 85610; 87040; 87077; 87086; 87186; 87400; 87811; 93225; 96361; 96365; 96367; 99285; J0696; J1815; J2270; J3475; J7030; J7120; J7999; A9270

== ENCOUNTER → 2024-11-19 | Outpatient (CLI) | payer BC, OTHER, SELFPAY ==
[2024-11-19 10:19] LABS: Collection Type, Urine Clean Catch
[2024-11-19 10:51] LABS: Basophils # (Auto) 0.0 Thou/mm3 (0.0-0.2); Basophils % (Auto) 1 % (0-2.5); Eosinophils # (Auto) 0.0 Thou/mm3 (0.0-0.5); Eosinophils % (Auto) 1 % (0-10); Hematocrit 38.7 % (36.0-46.0); Hemoglobin 13.4 g/dL (12.0-16.0); Immature Granulocytes Auto 0.02 Thou/mm3 (0.00-0.00); Lymphocytes # (Auto) 2.8 Thou/mm3 (1.0-4.8); Lymphocytes % (Auto) 45 % (10-50); Mean Corpuscular HGB Conc 34.6 g/dl (31.0-37.0); Mean Corpuscular Hemoglobin 30.7 pg (25.0-35.0); Mean Corpuscular Volume 89 fL (80-100); Monocytes # (Auto) 0.3 Thou/mm3 (0.0-0.8); Monocytes % (Auto) 5 % (0-12); Neutrophils # (Auto) 3.1 Thou/mm3 (1.8-7.7); Neutrophils % (Auto) 49 % (37-80); Nucleated Red Blood Cell # 0.00 Thou/mm3 (0.00-0.00); Nucleated Red Blood Cell % 0 /100 WBC (0); Platelet Count 229 Thou/mm3 (140-440); RDW Standard Deviation 36.4 fL (36.4-46.3); Red Blood Count 4.37 Miln/mm3 (4.00-5.20); White Blood Count 6.3 Thou/mm3 (3.6-11.0)
[2024-11-19 10:58] LABS: Bacteria,Urine 1+; Bilirubin,Urine Negative (Negative); Blood,Urine 2+ (Negative); Color,Urine Yellow (Lt Yel-Yel); Glucose, Urine Negative (Negative); Ketones,Urine Negative (Negative); Leukocyte Esterase,Urine Positive (Negative); Nitrite,Urine Positive (Negative); PH,Urine 6.0 (5.0-7.0); Protein,Urine 1+ (Neg - Trace); RBC,Urine 37 /hpf (0-3); Specific Gravity,Urine 1.022 (1.001-1.035); Squamous Epithelial Cell,Urine 5 /hpf (0-5); Urobilinogen,Urine Negative mg/dL (0.0-1.0); WBC,Urine 373 /hpf (0-5)
[2024-11-19 10:58] LABS: Glucose Estimated Average 160 mg/dL (80-131); Hemoglobin A1C 7.2 % Hgb (4.8-6.0)
[2024-11-19 11:00] LABS: Clarity,Urine Hazy (Clear/Hazy)
[2024-11-19 11:04] LABS: Follicle Stimulating Hormone 12.88 mIU/mL (See Note); Vitamin B12 269 pg/mL (211-911); Vitamin D 25 Hydroxy Total 34.5 ng/mL (7.3-40.2)
[2024-11-19 11:18] LABS: Alanine Aminotransferase < 7 U/L (10-49); Albumin, Serum 4.1 gm/dL (3.5-5.0); Albumin/Globulin Ratio 1.5 (1.2-2.2); Alkaline Phosphatase 51 U/L (46-116); Anion Gap 7 (7-16); Aspartate Amino Transferase 12 U/L (0-34); BUN/Creatinine Ratio 14 Ratio (12-20); Bilirubin,Total 0.7 mg/dL (0.3-1.2); Blood Urea Nitrogen 11 mg/dL (9-23); Calcium 9.5 mg/dL (8.3-10.6); Calcium (Corrected) 9.5 mg/dL (8.5-10.1); Carbon Dioxide 26.6 mMol/L (20.0-31.0); Cardiac Risk Estimate 2.7 RATIO (3.7-5.6); Chloride 106 mMol/L (98-107); Cholesterol 154 mg/dL (132-200); Creatinine (Component) 0.8 mg/dL (0.6-1.3); Globulin 2.7 gm/dL (2.3-3.5); Glucose 185 mg/dL (74-106); HDL Cholesterol 58 mg/dL (40-60); LDL Cholesterol,Calculated 82 mg/dL (0-130); Osmolality,Calculated 283 (275-295); Potassium 3.9 mMol/L (3.4-5.1); Sodium 140 mMol/L (136-145); Thyroid Stimulating Hormone 0.44 uIU/mL (0.55-4.78); Total Protein 6.8 gm/dL (5.7-8.2); Triglycerides 72 mg/dL (30-150); Uric Acid 2.3 mg/dL (3.1-7.8); eGFR > 60 See Note
[2024-11-27 06:54] LABS: C-Peptide* 0.59 ng/mL (0.80-3.85); Estrogen, Total, Serum* 206 pg/mL; Luteinizing Hormone* 13.6 mIU/mL; Progesterone,LC/MS* 11.0 ng/mL
== END | disposition home or self-care (01) ==
LOC: COPL 08:55
PROVIDERS: PCP Internal Medicine; Referring Provider Internal Medicine; Visit Provider Internal Medicine
DX: Z00.00 Encounter for general adult medical examination without abnormal findings (principal); E11.9 Type 2 diabetes mellitus without complications
CPT/HCPCS: 36415; 80053; 80061; 81001; 82306; 82607; 82672; 83001; 83002; 83036; 84144; 84443; 84550; 84681; 85025